=== PATIENT | male | born 1930 | race Caucasian/White ===

== ENCOUNTER 2016-04-24 19:41 | Emergency (ER) | payer MEDICARE ==
[2016-04-24] MEDS ORDERED: Sodium Chloride 0.9% 1000 ML 1,000 ML ONE (19:55)
--- NOTE | 2016-04-24 19:55 | ERPHSYRPT ---
- History of Present Illness Time Seen by Provider: 04/24/16 19:45 Source: patient, EMS (noted glucose hi) Physician History: CC: dizzy hx: 86 y/o patient of Dr Kevin Gardner. He has hx of HTN, DM. He takes pills and insulin. Today has fuzzy vision and inabilty to focus. EMT noted glucose hi so brought him to ER. No headache. No focal weakness. No V/D. No chest or abd pain. He is mostly without symptoms. Timing/Duration: today Severity: moderate Allergies/Adverse Reactions: No Known Drug Allergies Allergy (Verified 04/24/16 19:55) Home Medications: Carvedilol 3.125 mg [Coreg 3.125 MG] 3.125 mg PO BID 05/10/12 [History] Lovastatin 40 mg PO DAILY 05/10/12 [History] Insulin NPH/Reg 70/30 [Novolin 70/30] 30 unit SQ HS 06/02/15 [History] Insulin NPH/Reg 70/30 [Novolin 70/30] 38 unit SQ QAM 06/02/15 [History] Lisinopril 10 mg [Zestril 10 MG] 20 mg PO DAILY 06/02/15 [History] Sertraline HCl 50 mg [Zoloft 50 mg Tablet] 50 mg PO DAILY 06/02/15 [History] Hx Tetanus, Diphtheria Vaccination/Date Given: Yes (unknown) Hx Influenza Vaccination/Date Given: Yes Hx Pneumococcal Vaccination/Date Given: Yes - Review of Systems Constitutional: Fatigue, Malaise, Weakness, No Fever, No Chills Eyes: Vision Changes (fuzzy and blurry) Ears, Nose, & Throat: No Symptoms Respiratory: No Cough, No Dyspnea Cardiac: No Chest Pain Abdominal/Gastrointestinal: No Abdominal Pain, No Nausea, No Vomiting, No Diarrhea Genitourinary Symptoms: No Dysuria Musculoskeletal: No Back Pain Skin: No Rash Neurological: Dizziness, No Focal Weakness, No Headache, No Parasthesia All Other Systems: Reviewed and Negative - Past Medical History Pertinent Past Medical History: Yes Neurological History: No Pertinent History ENT History: No Pertinent History Cardiac History: Coronary Artery Disease, Hypertension, Myocardial Infarction ( [place]) Respiratory History: No Pertinent History Endocrine Medical History: Diabetes Type II Musculoskeletal History: Arthritis GI Medical History: No Pertinent History History: No Pertinent History Psycho-Social History: No Pertinent History Male Reproductive Disorders: No Pertinent History - Past Surgical History Past Surgical History: Yes Neuro Surgical History: No Pertinent History Cardiac: Cardiac Catheterization, Cardiac Stent Respiratory: No Pertinent History Gastrointestinal: Cholecystectomy Genitourinary: No Pertinent History Musculoskeletal: No Pertinent History Male Surgical History: No Pertinent History - Social History Smoking Status: Never smoker Exposure to second hand smoke: No Drug Use: none Patient Lives Alone: Yes - Nursing Vital Signs Nursing Vital Signs: Initial Vital Signs Temperature 97.3 F Temperature Source Oral Pulse Rate 54 Respiratory Rate 20 Blood Pressure [] 177/69 Pain Intensity 0 - Physical Exam General Appearance: alert Eye Exam: PERRL/EOMI Ears, Nose, Throat Exam: normal ENT inspection, dry mucous membranes Neck Exam: normal inspection, non-tender, supple Respiratory Exam: normal breath sounds, lungs clear Cardiovascular Exam: regular rate/rhythm, No murmur Gastrointestinal/Abdomen Exam: soft, other (nontender umbilical hernia), No tenderness, No distention Male Genitalia Exam: normal genitalia Extremity Exam: normal inspection, normal range of motion, No pedal edema Neurologic Exam: alert, oriented x 3, cooperative, 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, sensation nml, No motor deficits Skin Exam: warm, dry, No rash SpO2 Interpretation: normal SpO2: 97 Oxygen Delivery: Room Air - Course Nursing assessment & vital signs reviewed: Yes EKG Interpreted by Me: RATE, Sinus [place] (57), NORMAL AXIS, 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) - Radiology Exams cxr X-ray Interpretation: Reviewed by me (CM, granulomatous disease, no acute) Ordered Tests: Active Orders 24 hr Category Date Time Status Accucheck STAT Care 04/24/16 21:48 Active Clean Catch Urine Specimen STAT Care 04/24/16 19:45 Active EKG-ER Only STAT Care 04/24/16 19:45 Active IV Insertion STAT Care 04/24/16 19:45 Active Pulse Oximetry (ED) STAT Care 04/24/16 19:45 Active CHEST 1 VIEW (PORTABLE) Stat Exams 04/24/16 19:45 Taken CBC W DIFF Stat Lab 04/24/16 20:06 Completed CMP Stat Lab 04/24/16 20:06 Completed Glucose,Critical Care Urgent Lab 04/24/16 20:12 Completed Lactic Acid Urgent Lab 04/24/16 20:12 Completed MAGNESIUM Stat Lab 04/24/16 20:06 Completed TROPONIN Stat Lab 04/24/16 20:06 Completed UA W/ MICROSCOPIC Stat Lab 04/24/16 21:10 Completed VENOUS BLOOD GAS Urgent Lab 04/24/16 20:12 Completed Medication Summary Discontinued Medications Generic Name Dose Route Start Last Admin Trade Name Carter PRN Reason Stop Dose Admin Sodium Chloride 500 mls @ 999 mls/hr 04/24/16 19:45 04/24/16 19:56 Sodium Chloride 0.9% 1000 Ml IV 04/24/16 20:15 999 mls/hr .Q31M STA Administration Sodium Chloride Confirm 04/24/16 19:55 Sodium Chloride 0.9% 1000 Ml Administered 04/24/16 19:56 Dose 1,000 mls @ ud .ROUTE .STK-MED ONE Insulin Aspart 15 unit 04/24/16 20:51 04/24/16 20:58 Novolog Insulin SQ 04/24/16 20:52 15 unit STAT ONE Administration Insulin Aspart Confirm 04/24/16 20:55 Novolog Insulin Administered 04/24/16 20:56 Dose 15 unit .ROUTE .STK-MED ONE Lab/Rad Data: Laboratory Result Diagrams 04/24/16 20:06 04/24/16 20:06 Laboratory Results 04/24/16 04/24/16 04/24/16 Range/Units 21:10 20:12 20:06 WBC (4.0-10.5) K/mm3 RBC (4.1-5.6) M/mm3 Hgb (12.5-18.0) gm/dl Hct (42-50) % MCV (78-100) fl MCH (26-32) pg MCHC (32-36) g/dl RDW (11.5-14.0) % Plt Count (150-450) K/mm3 MPV (6-9.5) fl Gran % (36.0-66.0) % Lymphocytes % (24.0-44.0) % Monocytes % (0.0-12.0) % Eosinophils % (0.00-5.0) % Basophils % (0.0-0.4) % Basophils # (0-0.4) VBG pH 7.40 (7.32-7.42) VBG pCO2 at Pat Temp 43 (42-55) mm/Hg VBG pO2 at Pat Temp 56 H (25-40) mm/Hg VBG HCO3 26.6 (22-28) meq/L VBG O2 Sat ([place]) 93.0 L (95-100) VBG Base Excess 1.4 (-2.0-2.0) VBG Hemoglobin 15.3 VBG Carboxyhemoglobin 2.3 (0.0-6.9) % T HGB POC Potassium 4.3 (3.5-5.1) Sodium (136-145) mEq/L Potassium (3.5-5.1) mEq/L Chloride (98-107) mEq/L Carbon Dioxide (21-32) mEq/L Anion Gap (5-15) MEQ/L BUN (9-20) mg/dL Creatinine (0.55-1.30) mg/dl Estimated GFR ML/MIN Glucose 561 H* (70-110) MG/DL Lactic Acid 2.8 H (0.4-2.0) Calcium (8.5-10.1) mg/dL Magnesium (1.8-2.4) mg/dL Total Bilirubin (0.2-1.0) mg/dL AST (15-37) U/L ALT (12-78) U/L Alkaline Phosphatase (46-116) U/L Troponin I < 0.017 (0.000-0.056) ng/ml Serum Total Protein (6.4-8.2) gm/dL Albumin (3.4-5.0) g/dL Ur Collection Type CLEAN CATCH Urine Color YELLOW (YELLOW) Urine Appearance CLEAR (CLEAR) Urine pH 7.0 (5-6) Ur Specific [place] 1.015 (1.005-1.025) Urine Protein NEGATIVE (Negative) Urine Glucose (UA) >=1000 (NEGATIVE) mg/dL Urine Ketones NEGATIVE (NEGATIVE) Urine Nitrite NEGATIVE (NEGATIVE) Urine Bilirubin NEGATIVE (NEGATIVE) Urine Urobilinogen 0.2 (0-1) mg/dL Urine WBC (Auto) NEGATIVE (NEGATIVE) Urine RBC (Auto) TRACE-INTACT (0-5) Bran/ul Urine Microscopic RBC 2-5 (0-2) /HPF Urine Microscopic WBC 0-2 (0-5) /HPF Ur Epithelial Cells RARE (FEW) /HPF Urine Bacteria FEW (NEGATIVE) /HPF Specimen Received 04/24/16210404/24/16 04/24/16 Range/Units 20:06 20:06 WBC 6.3 (4.0-10.5) K/mm3 RBC 5.17 (4.1-5.6) M/mm3 Hgb 15.4 (12.5-18.0) gm/dl Hct 45.7 (42-50) % MCV 88.4 (78-100) fl MCH 29.8 (26-32) pg MCHC 33.7 (32-36) g/dl RDW 14.0 (11.5-14.0) % Plt Count 196 (150-450) K/mm3 MPV 11.1 H (6-9.5) fl Gran % 58.8 (36.0-66.0) % Lymphocytes % 25.2 (24.0-44.0) % Monocytes % 8.8 (0.0-12.0) % Eosinophils % 6.3 H (0.00-5.0) % Basophils % 0.9 (0.0-0.4) % Basophils # 0.06 (0-0.4) VBG pH (7.32-7.42) VBG pCO2 at Pat Temp (42-55) mm/Hg VBG pO2 at Pat Temp (25-40) mm/Hg VBG HCO3 (22-28) meq/L VBG O2 Sat ([place]) (95-100) VBG Base Excess (-2.0-2.0) VBG Hemoglobin VBG Carboxyhemoglobin (0.0-6.9) % T HGB POC Potassium (3.5-5.1) Sodium 131 L (136-145) mEq/L Potassium 4.2 (3.5-5.1) mEq/L Chloride 95 L (98-107) mEq/L Carbon Dioxide 26.3 (21-32) mEq/L Anion Gap 14.0 (5-15) MEQ/L BUN 12 (9-20) mg/dL Creatinine 1.50 H (0.55-1.30) mg/dl Estimated GFR 47 ML/MIN Glucose 538 H* (70-110) MG/DL Lactic Acid (0.4-2.0) Calcium 8.5 (8.5-10.1) mg/dL Magnesium 1.7 L (1.8-2.4) mg/dL Total Bilirubin 0.8 (0.2-1.0) mg/dL AST 13 L (15-37) U/L ALT 9 L (12-78) U/L Alkaline Phosphatase 103 (46-116) U/L Troponin I (0.000-0.056) ng/ml Serum Total Protein 6.8 (6.4-8.2) gm/dL Albumin 3.4 (3.4-5.0) g/dL Ur Collection Type Urine Color (YELLOW) Urine Appearance (CLEAR) Urine pH (5-6) Ur Specific [place] (1.005-1.025) Urine Protein (Negative) Urine Glucose (UA) (NEGATIVE) mg/dL Urine Ketones (NEGATIVE) Urine Nitrite (NEGATIVE) Urine Bilirubin (NEGATIVE) Urine Urobilinogen (0-1) mg/dL Urine WBC (Auto) (NEGATIVE) Urine RBC (Auto) (0-5) Bran/ul Urine Microscopic RBC (0-2) /HPF Urine Microscopic WBC (0-5) /HPF Ur Epithelial Cells (FEW) /HPF Urine Bacteria (NEGATIVE) /HPF Specimen Received - Progress Progress Note: 04/24/16 22:09 The patient feels better. Ambulated well. No focal weakness. He wants to go home. No sign of stroke or infection. Spoke to Dr Quinn. Family agrees to stay with him tonite. Will release with instructions. Counseled pt/family regarding: lab results, diagnosis, need for follow-up, rad results - Departure Time of Disposition: 22:09 Departure Disposition: Home Clinical Impression: Hyperglycemia due to type 2 diabetes mellitus Qualifiers: Diabetes mellitus half-way insulin use: with manager long term care use Qualified Code(s): E11.65 - Type 2 diabetes mellitus with hyperglycemia; Z79.4 - assisted (current ) use of insulin Condition: Fair Critical Care Time: No Referrals: FLORY GARDNER [Primary Care Provider] - Instructions: Hyperglycemia -- Adult Additional Instructions: Check sugar tonite in middle of night to make sure not too low. Take normal insulin in AM. Call Dr Gardner in AM to arrange follow up in 1-2 days. REturn for problems or concerns.
[2016-04-24 20:09] LABS: BASOPHIL % 0.9 % (0.0-0.4); Eosinophil % 6.3 % (0.00-5.0); Granulocytes % 58.8 % (36.0-66.0); Lymphocytes % 25.2 % (24.0-44.0); Mean Cell Volume 88.4 fl (78-100); Mean Corpuscular Hemoglobin 29.8 pg (26-32); Mean Platelet Volume 11.1 fl (6-9.5); Monocytes % 8.8 % (0.0-12.0); Platelet Count 196 K/mm3 (150-450); Red Blood Count 5.17 M/mm3 (4.1-5.6); White Blood Count 6.3 K/mm3 (4.0-10.5)
[2016-04-24 20:17] LABS: Lactic Acid 2.8 (0.4-2.0); VBG BASE EXCESS 1.4 (-2.0-2.0); VBG CARBOXYHEMOGLOBIN 2.3 % T HGB (0.0-6.9); VBG HCO3- 26.6 meq/L (22-28); VBG HEMOGLOBIN 15.3; VBG POTASSIUM 4.3 (3.5-5.1); VBG pH 7.4 (7.32-7.42)
[2016-04-24 20:29] LABS: ALBUMIN 3.4 g/dL (3.4-5.0); BILIRUBIN,TOTAL 0.8 mg/dL (0.2-1.0); Carbon Dioxide 26.3 mEq/L (21-32); MAGNESIUM 1.7 mg/dL (1.8-2.4); Potassium 4.2 mEq/L (3.5-5.1); Total Protein 6.8 gm/dL (6.4-8.2)
[2016-04-24] MEDS ORDERED: NovoLOG Insulin SQ ONE (20:51)
[2016-04-24] MEDS ORDERED: NovoLOG Insulin ONE (20:55)
[2016-04-24 21:24] LABS: Bacteria FEW /HPF (NEGATIVE); COMPLETE URINE MICROSCOPIC? YES; Collection Type CLEAN CATCH; Epithelial Cells RARE /HPF (FEW); WBC 0-2 /HPF (0-5)
[2016-04-24 22:23] VITALS: BP 176/78; PULSE 52; O2SAT 94
--- NOTE | 2016-04-25 09:11 | XRAY ---
Indication: Hyperglycemia. Comparison: June 02, 2015. Portable chest again demonstrates scattered calcified granulomas and minimal bibasilar atelectasis/scarring. Remaining lungs clear. Heart is not enlarged for AP portable technique. Bony thorax intact again with mild osteopenia and degenerative changes. Impression: Nonacute chest with chronic features.
== END 2016-04-24 22:30 | disposition home or self-care (01) ==
LOC: ED 19:41
DX: E11.65 Type 2 diabetes mellitus with hyperglycemia (principal); Z79.4 Long term (current) use of insulin; I10 Essential (primary) hypertension; Z79.899 Other long term (current) drug therapy; R53.83 Other fatigue; R53.1 Weakness; H53.9 Unspecified visual disturbance; I25.10 Atherosclerotic heart disease of native coronary artery without angina pectoris; I25.2 Old myocardial infarction
CPT/HCPCS: 99284; 36000; 82962; 96360; 93005; 81000; 36415; 83735; 85025; 80053; 84484; 71010; 82805; 82947; 83605; A9270; 99283

== ENCOUNTER 2016-06-25 19:17 | Emergency (ER) | payer MEDICARE ==
[2016-06-25] MEDS ORDERED: Novolin 70/30 SQ ONE (19:34)
--- NOTE | 2016-06-25 19:40 | ERPHSYRPT ---
- History of Present Illness Time Seen by Provider: 06/25/16 19:26 Source: patient, family Physician History: CC: high sugar Hx: 86 y/o patient of Dr Gardner. He has hx of DM. On humulin 70/30 40 units SQ BID. Family forgot to pick it up today and he is out of insulin. Sugar 360. He needs insulin dose. He had some novolog pen but did not know how to use it so came to ER. Drug store is closed earlier for the weekend. No other symptoms. Timing/Duration: today Severity: mild Allergies/Adverse Reactions: No Known Drug Allergies Allergy (Verified 06/25/16 19:30) Home Medications: Carvedilol 3.125 mg [Coreg 3.125 MG] 3.125 mg PO BID 05/10/12 [History] Lovastatin 40 mg PO DAILY 05/10/12 [History] Insulin NPH/Reg 70/30 [Novolin 70/30] 30 unit SQ HS 06/02/15 [History] Insulin NPH/Reg 70/30 [Novolin 70/30] 38 unit SQ QAM 06/02/15 [History] Lisinopril 10 mg [Zestril 10 MG] 20 mg PO DAILY 06/02/15 [History] Sertraline HCl 50 mg [Zoloft 50 mg Tablet] 50 mg PO DAILY 06/02/15 [History] Hx Tetanus, Diphtheria Vaccination/Date Given: Yes (unknown) Hx Influenza Vaccination/Date Given: Yes Hx Pneumococcal Vaccination/Date Given: Yes - Review of Systems Constitutional: No Fever, No Chills, No Malaise Eyes: No Symptoms Cardiac: No Chest Pain Abdominal/Gastrointestinal: No Abdominal Pain, No Nausea, No Vomiting, No Diarrhea Genitourinary Symptoms: No Dysuria Musculoskeletal: No Back Pain Skin: No Rash Neurological: No Headache All Other Systems: Reviewed and Negative - Past Medical History Pertinent Past Medical History: Yes Neurological History: No Pertinent History ENT History: No Pertinent History Cardiac History: Coronary Artery Disease, Hypertension, Myocardial Infarction ( [place]) Respiratory History: No Pertinent History Endocrine Medical History: Diabetes Type II Musculoskeletal History: Arthritis GI Medical History: No Pertinent History History: No Pertinent History Psycho-Social History: No Pertinent History Male Reproductive Disorders: No Pertinent History - Past Surgical History Past Surgical History: Yes Neuro Surgical History: No Pertinent History Cardiac: Cardiac Catheterization, Cardiac Stent Respiratory: No Pertinent History Gastrointestinal: Cholecystectomy Genitourinary: No Pertinent History Musculoskeletal: No Pertinent History Male Surgical History: No Pertinent History - Social History Smoking Status: Never smoker Exposure to second hand smoke: No Drug Use: none Patient Lives Alone: No (here with family) - Nursing Vital Signs Nursing Vital Signs: Initial Vital Signs Temperature 98.9 F Temperature Source Oral Pulse Rate 71 Respiratory Rate 16 Blood Pressure [Right Arm] 163/79 Pain Intensity 0 - Physical Exam General Appearance: alert Eye Exam: PERRL/EOMI Ears, Nose, Throat Exam: normal ENT inspection, moist mucous membranes Neck Exam: normal inspection, non-tender, supple Respiratory Exam: normal breath sounds, lungs clear Cardiovascular Exam: regular rate/rhythm Gastrointestinal/Abdomen Exam: soft, No tenderness, No distention Neurologic Exam: alert, oriented x 3, cooperative, sensation nml, No motor deficits Skin Exam: warm, dry SpO2 Interpretation: normal SpO2: 96 Oxygen Delivery: Room Air - Course Nursing assessment & vital signs reviewed: Yes - Progress Progress Note: 06/25/16 19:37 Will give his normal dose of 70/30 and give Rx to get at a 24 hour pharmacy. He has no symptoms. Just needs his insulin. Counseled pt/family regarding: diagnosis, need for follow-up - Departure Time of Disposition: 19:38 Departure Disposition: Home Clinical Impression: Type 2 diabetes mellitus, uncontrolled Qualifiers: Diabetes mellitus complication status: without complication Condition: Stable Critical Care Time: No Referrals: FLORY GARDNER [Primary Care Provider] - Instructions: Diabetes Type 2 Additional Instructions: We have given your normal night dose of insulin. Get Rx for in AM. Take your pen to Dr Gardner appointment for instructions regarding future supplemental insulin. Return for problems or concerns. Prescriptions: Hum Insulin NPH/Reg Insulin Hm [Humulin 70-30 Vial] 40 unit SQ BID #1 bottle
[2016-06-25] MEDS ORDERED: NovoLIN R ONE (19:41)
[2016-06-25 20:07] VITALS: BP 168/70; PULSE 70; O2SAT 99
== END 2016-06-25 20:07 | disposition home or self-care (01) ==
LOC: ED 19:17
DX: E11.65 Type 2 diabetes mellitus with hyperglycemia (principal); Z79.4 Long term (current) use of insulin
CPT/HCPCS: 82962; 96372; 99283; 99284; J1815; A9270-GY

== ENCOUNTER 2018-01-10 17:12 | Emergency (ER) | payer MEDICARE ==
--- NOTE | 2018-01-10 17:22 | ERPHSYRPT ---
- History of Present Illness Time Seen by Provider: 01/10/18 17:17 Source: patient, family Exam Limitations: clinical condition Physician History: pt went suddenly limp on the left side and slurring speech today at 4:45pm, constant, no injury, no emesis, no fever, hx tia and dm, blood sugar 254 Allergies/Adverse Reactions: No Known Drug Allergies Allergy (Verified 06/25/16 19:30) Home Medications: Carvedilol 3.125 mg [Coreg 3.125 MG] 3.125 mg PO BID 05/10/12 [History] Lovastatin 40 mg PO DAILY 05/10/12 [History] Insulin NPH/Reg 70/30 [Novolin 70/30] 40 unit SQ HS 06/02/15 [History] Insulin NPH/Reg 70/30 [Novolin 70/30] 40 unit SQ QAM 06/02/15 [History] Lisinopril 10 mg [Zestril 10 MG] 20 mg PO DAILY 06/02/15 [History] Sertraline HCl 50 mg [Zoloft 50 mg Tablet] 50 mg PO DAILY 06/02/15 [History] Hx Tetanus, Diphtheria Vaccination/Date Given: Yes (unknown) Hx Influenza Vaccination/Date Given: Yes Hx Pneumococcal Vaccination/Date Given: Yes - Review of Systems Constitutional: No Fever Eyes: No Tearing Ears, Nose, & Throat: No Epistaxis Respiratory: No Dyspnea Cardiac: No Chest Pain Abdominal/Gastrointestinal: No Vomiting Musculoskeletal: No Neck Pain, No Fall Skin: No Rash Neurological: Focal Weakness - Past Medical History Pertinent Past Medical History: Yes Neurological History: No Pertinent History ENT History: No Pertinent History Cardiac History: Coronary Artery Disease, Hypertension, Myocardial Infarction ( [place]) Respiratory History: No Pertinent History Endocrine Medical History: Diabetes Type II Musculoskeletal History: Arthritis GI Medical History: No Pertinent History History: No Pertinent History Psycho-Social History: No Pertinent History Male Reproductive Disorders: No Pertinent History - Past Surgical History Past Surgical History: Yes Neuro Surgical History: No Pertinent History Cardiac: Cardiac Catheterization, Cardiac Stent Respiratory: No Pertinent History Gastrointestinal: Cholecystectomy Genitourinary: No Pertinent History Musculoskeletal: No Pertinent History Male Surgical History: No Pertinent History - Social History Smoking Status: Never smoker Exposure to second hand smoke: No Drug Use: none Patient Lives Alone: No (here with family) - Nursing Vital Signs Nursing Vital Signs: Initial Vital Signs Pulse Rate 58 L 01/10/18 17:12 Respiratory Rate 12 01/10/18 17:12 Blood Pressure 176/107 01/10/18 17:12 - [place] Coma Scale Best Eye Response ([place]icholas): (4) open spontaneously Best Verbal Response ([place]): (5) oriented Best Motor Response ([place]): (6) obeys commands [place] Total: 15 - Physical Exam General Appearance: no apparent distress Eye Exam: bilateral eye: PERRL, EOMI Ears, Nose, Throat Exam: pharynx normal Neck Exam: normal inspection Respiratory: normal breath sounds Cardiovascular: regular rate/rhythm Gastrointestinal: soft, other (reducible umbilical hernea), No tenderness Back Exam: No vertebral tenderness Extremity Exam: pelvis stable Mental Status: alert, oriented x 3, cooperative Skin Exam: warm, dry, other (unable to move the left upper and lower extremity) - Course Nursing assessment & vital signs reviewed: Yes EKG Interpreted by Me: Other (first deg AVB 52 as seen 03/2016) - CT Exams Head CT Interpretation: Discussed w/radiologist, Other (no bleed or other acute process) Ordered Tests: Active Orders 24 hr Category Date Time Status Infrastructure Administrator STAT Care 01/10/18 17:15 Active EKG-ER Only STAT Care 01/10/18 17:14 Active IV Insertion STAT Care 01/10/18 17:14 Active NPO (ED) STAT Care 01/10/18 17:15 Active Pulse Oximetry (ED) STAT Care 01/10/18 17:14 Active CHEST 1 VIEW (PORTABLE) Stat Exams 01/10/18 17:15 Taken HEAD WITHOUT CONTRAST [CT] Stat Exams 01/10/18 17:16 Taken CBC W DIFF Stat Lab 01/10/18 18:00 Completed CMP Stat Lab 01/10/18 17:14 Ordered PROTIME WITH INR Stat Lab 01/10/18 17:14 Ordered TROPONIN Q3H Lab 01/10/18 17:15 Ordered TROPONIN Q3H Lab 01/10/18 20:15 Ordered TROPONIN Q3H Lab 01/10/18 23:15 Ordered TROPONIN Q3H Lab 01/11/18 02:15 Ordered TROPONIN Q3H Lab 01/11/18 05:15 Ordered Lab/Rad Data: Laboratory Result Diagrams 01/10/18 18:00 Laboratory Results 01/10/18 Range/Units 18:00 WBC 6.5 (4.0-10.5) K/mm3 RBC 4.55 (4.1-5.6) M/mm3 Hgb 14.0 (12.5-18.0) gm/dl Hct 43.0 (42-50) % MCV 94.5 (78-100) fl MCH 30.8 (26-32) pg MCHC 32.6 (32-36) g/dl RDW 14.3 H (11.5-14.0) % Plt Count 141 L (150-450) K/mm3 MPV 12.0 H (6-9.5) fl Gran % 63.0 (36.0-66.0) % Eos # (Auto) 0.23 (0-0.5) Absolute Lymphs (auto) 1.61 (1.0-4.6) Absolute Monos (auto) 0.50 (0.0-1.3) Lymphocytes % 25.0 (24.0-44.0) % Monocytes % 7.8 (0.0-12.0) % Eosinophils % 3.6 (0.00-5.0) % Basophils % 0.6 (0.0-0.4) % Absolute Granulocytes 4.07 (1.4-6.9) Basophils # 0.04 (0-0.4) - Progress Progress: unchanged Progress Note: 01/10/18 18:20 [facility] Dr Severino accepts transfer at 17:53, Dr Bray of teleneurology at 18:11 advises tpa administration Counseled pt/family regarding: diagnosis, rad results - Departure Time of Disposition: 18:22 Departure Disposition: Transfer Clinical Impression: CVA (cerebral vascular accident) Qualifiers: CVA mechanism: occlusion Precerebral and cerebral artery: middle cerebral artery Laterality of affected vessel: right Qualified Code(s): I63.511 - Cerebral infarction due to unspecified occlusion or stenosis of right middle cerebral artery Condition: Stable Critical Care Time: Yes Critical Care Time(excluding separately billable procedures): 30-74 minutes
[2018-01-10 18:03] LABS: BASOPHIL % 0.6 % (0.0-0.4); Basophil (Absolute #) 0.04 (0-0.4); Eosinophil % 3.6 % (0.00-5.0); Eosinophil (Absolute #) 0.23 (0-0.5); Granulocyte Absolute (ANC) 4.07 (1.4-6.9); Lymphocyte (Absolute #) 1.61 (1.0-4.6); Mean Cell Volume 94.5 fl (78-100); Mean Corpuscular Hemoglobin 30.8 pg (26-32); Mean Corpuscular Hgb Concent. 32.6 g/dl (32-36); Monocytes % 7.8 % (0.0-12.0); Platelet Count 141 K/mm3 (150-450); Red Blood Count 4.55 M/mm3 (4.1-5.6); Red Cell Distribution Width 14.3 % (11.5-14.0); White Blood Count 6.5 K/mm3 (4.0-10.5)
[2018-01-10 18:11] VITALS: PULSE 51
[2018-01-10 18:20] LABS: ALBUMIN 3.9 g/dL (3.5-5.0); ANION GAP 13.1 MEQ/L (5-15); BILIRUBIN,TOTAL 0.9 mg/dL (0.2-1.3); Creatinine 1 1.36 mg/dL (0.66-1.25); Potassium 4.4 mmol/L (3.5-5.1); Total Protein 6.6 g/dL (6.3-8.2)
[2018-01-10 18:32] LABS: INR 1.18 (0.8-3.0)
[2018-01-10] MEDS ORDERED: Activase 100 MG IV STA (18:32)
[2018-01-10] MEDS ORDERED: Sodium Chloride 0.9% 1000 ML 1,000 ML ONE (18:34)
[2018-01-10 18:46] VITALS: BP 165/70; O2SAT 96
--- NOTE | 2018-01-11 08:41 | XRAY ---
Indication: CVA. Left sided paralysis. Comparison: April 24, 2016. Portable chest less inflated with new left base infiltrate/atelectasis/effusion and minimal right midlung infiltrate/atelectasis. Remaining heart and lungs unremarkable again with incidental calcified granulomas. Stable osteopenia, degenerative changes, and old left clavicle fracture.
--- NOTE | 2018-01-11 08:45 | XRAY ---
Indication: Left-sided paralysis. Slurred speech. Stroke symptoms. Multiple contiguous axial images obtained through the head without contrast. Comparison: June 02, 2015. Images through the base of the brain slightly degraded by motion artifact. Stable age-appropriate global atrophy, mild periventricular degenerative micro-ischemia bilaterally, and small focus old left parietal infarct. New finding remote appearing left basal ganglia lacunar infarct. No acute intracranial hemorrhage, hydrocephalus, or mass effect. Fourth ventricle is midline. Bony calvarium intact. Visualized paranasal sinuses and mastoid air cells are clear. Impression: 1. New remote-appearing left basal ganglia lacunar infarct. 2. Stable atrophy, degenerative micro-ischemia, and remote left parietal infarct. 3. No acute intracranial abnormalities. CT DI 61.49
== END 2018-01-10 18:47 | disposition short-term general hospital (02) ==
LOC: ED 17:12
DX: I63.9 Cerebral infarction, unspecified (principal); E11.9 Type 2 diabetes mellitus without complications; I10 Essential (primary) hypertension; Z79.899 Other long term (current) drug therapy; Z79.4 Long term (current) use of insulin
CPT/HCPCS: 70450; 80053; 84484; 85025; 85610; 93005; 93041; 96360; 99291; 99292; Q3014; 36000; 36415; 71045; 96374; 99285; J2997